=== PATIENT | male | born 1960 | race American Indian/Alaskan Native ===

== ENCOUNTER 2020-04-22 20:49 | Emergency (ER) | payer SELFPAY ==
[2020-04-22 21:27] LABS: Basophils % (Auto) 0.7 % (0.0-1.8); Hematocrit 40.9 % (35.5-45.6); Hemoglobin 14.3 gm/dl (11.8-15.2); Lymphocytes # (Auto) 1.7 K/mm3 (1.2-5.4); Lymphocytes % (Auto) 40.7 % (13.4-35.0); Mean Corpuscular HGB Conc 35 % (32-34); Mean Corpuscular Volume 89 fl (84-94); Monocytes # (Auto) 0.2 K/mm3 (0.0-0.8); Monocytes % (Auto) 5.4 % (0.0-7.3); Platelet Count 174 K/mm3 (140-440); Red Blood Count 4.63 M/mm3 (3.65-5.03); Red Cell Distribution Width 14.5 % (13.2-15.2)
[2020-04-22 22:14] LABS: Bilirubin,Urine NEG (Negative); Blood,Urine NEG (Negative); Color,Urine Colorless (Yellow); Mucus,Urine FEW /HPF; Protein,Urine <15 mg/dL mg/dL (Negative); Urobilinogen,Urine < 2.0 mg/dL (<2.0); WBC,Urine < 1.0 /HPF (0.0-6.0)
[2020-04-22 22:39] LABS: Alanine Aminotransferase 20 units/L (7-56); BUN/Creatinine Ratio 21; Blood Urea Nitrogen 25 mg/dL (9-20); Calcium 9.4 mg/dL (8.4-10.2); Hemolysis Index 21
[2020-04-23] MEDS ORDERED: SODIUM CHLORIDE 0.9% 1000 ML 1,000 ML IV ONE ×2 (01:58)
[2020-04-23] MEDS ORDERED: INSULIN REGULAR, HUMAN 100 UNIT/ML 3ML VIAL IV ONE (01:59)
--- NOTE | 2020-04-23 02:01 | Emergency Department Report ---
ED General Adult HPI - General Chief complaint: Weakness Stated complaint: FEELING ILL Time Seen by Provider: 04/23/20 01:54 Source: patient Mode of arrival: Ambulatory Limitations: No Limitations - History of Present Illness Initial comments: 60-year-old male, history of acid reflux, presents to ED with 1 week history of generalized weakness, increased thirst, increased urination. Patient denies any previous diagnosis of diabetes. He denies any fever, cough, shortness of breath, abdominal pain, vomiting, or diarrhea. Patient states he does not c urrently have a PCP. -: week(s) (1) Consistency: constant Improves with: none Worsens with: none Associated Symptoms: denies: cough, fever/chills, nausea/vomiting, shortness of breath Treatments Prior to Arrival: none - Related Data Previous Rx's Medication Instructions Recorded Last Taken Type metFORMIN [Glucophage] 500 mg PO BID #60 tablet 04/23/20 Unknown Rx Allergies Allergy/AdvReac Type Severity Reaction Status Date / Time No Known Allergies Allergy Unverified 04/22/20 21:14 ED Review of Systems ROS: Stated complaint: FEELING ILL Other details as noted in HPI Comment: All other systems reviewed and negative Constitutional: denies: fever Respiratory: denies: cough, shortness of breath Endocrine: increased thirst, increased urine Gastrointestinal: denies: abdominal pain, nausea, vomiting, diarrhea ED Past Medical Hx - Past Medical History Previous Medical History?: Yes Hx Diabetes: Yes (borderline) - Surgical History Past Surgical History?: No - Social History Smoking Status: Current Every Day Smoker Substance Use Type: None - Medications Home Medications: Home Medications Medication Instructions Recorded Confirmed Last Taken Type metFORMIN [Glucophage] 500 mg PO BID #60 tablet 04/23/20 Unknown Rx ED Physical Exam - General Limitations: No Limitations General appearance: alert, in no apparent distress - Head Head exam: Present: atraumatic, normocephalic - Eye Eye exam: Present: normal appearance, EOMI - ENT ENT exam: Present: mucous membranes moist - Neck Neck exam: Present: normal inspection - Respiratory Respiratory exam: Present: normal lung sounds bilaterally. Absent: respiratory distress - Cardiovascular Cardiovascular Exam: Present: regular rate, normal rhythm - GI/Abdominal GI/Abdominal exam: Present: soft. Absent: distended, tenderness - Extremities Exam Extremities exam: Present: normal inspection - Neurological Exam Neurological exam: Present: alert, oriented X3 - Psychiatric Psychiatric exam: Present: normal affect, normal mood - Skin Skin exam: Present: warm, dry, intact, normal color ED Course Vital Signs 04/22/20 21:06 Temperature 98.7 F Pulse Rate 84 Respiratory 16 Rate Blood Pressure 165/97 O2 Sat by Pulse 98 Oximetry ED Medical Decision Making - Lab Data Result diagrams: 04/22/20 21:15 04/22/20 21:15 - Medical Decision Making 60-year-old male with new onset diabetes. Initial glucose of 621. Patient not in DKA. IV fluids and 10 units of insulin given. Repeat Accu-Chek is 305. Will discharge at this time. Prescriptions given. Outpatient follow-up advised, return precautions given. - Differential Diagnosis Hyperglycemia, DKA Critical care attestation.: If time is entered above; I have spent that time in minutes in the direct care of this critically ill patient, excluding procedure time. ED Disposition Clinical Impression: Hyperglycemia, New onset type 2 diabetes mellitus Disposition: - TO HOME OR SELFCARE Is pt being admited?: No Condition: Stable Instructions: Type 2 Diabetes Mellitus, Diagnosis, Adult, Blood Glucose Monitoring, Adult, Diabetes Mellitus and Nutrition, Adult, Diabetes Mellitus Type 2 in Adults (ED) Prescriptions: metFORMIN [Glucophage] 500 mg PO BID #60 tablet Referrals: PRIMARY CAREMD [Primary Care Provider] - 3-[address] [facility] [Outside] - 3-5 Days [facility] [Provider Group] - 3-5 Days ABI PARK MD [Staff Physician] - 3-5 Days Time of Disposition: 04:51
[2020-04-23 05:25] VITALS: BP 121/58
== END 2020-04-23 05:25 | disposition home or self-care (01) ==
LOC: ED 20:49
DX: E11.65 Type 2 diabetes mellitus with hyperglycemia (principal); F17.200 Nicotine dependence, unspecified, uncomplicated; Z79.899 Other long term (current) drug therapy
CPT/HCPCS: 36415; 80053; 81001; 82805; 82962; 85025; 96361; 96374; 99283; J7030; J1815

== ENCOUNTER 2020-07-17 22:49 | Emergency (ER) | payer SELFPAY ==
[2020-07-17 23:07] VITALS: BP 138/93
[2020-07-17] MEDS ORDERED: HYDROcodone/ACETAMINOPHEN 10-325MG TAB PO ONE (23:41)
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
== END 2020-07-18 02:10 | disposition home or self-care (01) ==
LOC: ED 22:49
DX: S39.012A Strain of muscle, fascia and tendon of lower back, initial encounter (principal); Z79.899 Other long term (current) drug therapy; V09.9XXA Pedestrian injured in unspecified transport accident, initial encounter; Y92.410 Unspecified street and highway as the place of occurrence of the external cause; Y93.89 Activity, other specified; Y99.8 Other external cause status
CPT/HCPCS: 72131; 72192